=== PATIENT | female | born 1950 | race Caucasian/White ===

== ENCOUNTER 2018-02-15 06:28 | Inpatient (IN) | payer MEDICAID, MEDICARE ==
[~2018-02-15 06:28] MED LIST: MORPHINE SULFATE 15 MG TABLET.SA PO PRN; TRANEXAMIC ACID 1,000 MG in NORMAL SALINE 100 ML IV PRN; ceFAZolin SODIUM 1 GM VIAL IV PRN
[2018-02-15] MEDS: RINGER'S SOLUTION,LACTATED 1,000 ML IV PRN ×2 (07:08→08:20)
--- NOTE | 2018-02-15 07:24 | ANES ---
Anesthesia Pre Procedure Eval Vitals/Labs: Last Vital Signs Temp 36.4 C 02/15/18 06:30 Pulse 93 02/15/18 06:30 Resp 18 02/15/18 06:30 BP 139/93 H 02/15/18 06:30 Pulse Ox 94 02/15/18 06:30 HOME MEDICATIONS acyclovir 400 mg tablet 400 mg PO DAILY 10/27/17 [Last Taken 02/14/18] albuterol sulfate HFA 90 mcg/actuation aerosol inhaler 2 inh IH Q8H PRN 10/27/17 [Last Taken 02/14/18] alprazolam 1 mg tablet 1 mg PO TID 10/27/17 [Last Taken 02/14/18] azithromycin 500 mg tablet 500 mg PO 3XW 10/27/17 [Last Taken 02/15/18] budesonide-formoterol HFA 80 mcg-4.5 mcg/actuation aerosol inhaler 2 inh IH BID 10/27/17 [Last Taken 02/14/18] cyclobenzaprine 10 mg tablet 10 mg PO TID 10/27/17 [Last Taken 02/14/18] diphenhydramine 25 mg capsule 25 mg PO Q8H PRN 10/27/17 [Last Taken Unknown] ipratropium bromide 0.02 % solution for inhalation 1.25 ml IH Q8H PRN 10/27/17 [Last Taken 02/14/18] montelukast 10 mg tablet 10 mg PO DAILY 10/27/17 [Last Taken 02/14/18] multivitamin-ferrous fumarate-folic acid 18 mg-400 mcg tablet 1 tab PO DAILY 10/27/17 [Last Taken 02/14/18] naproxen sodium 220 mg capsule 220 mg PO BID PRN 10/27/17 [Last Taken Unknown] omeprazole 40 mg capsule,delayed release 40 mg PO DAILY 10/27/17 [Last Taken 02/14/18] oxygen-air delivery systems device See Dose Instructions .ROUTE .MEDSUPPLY #1 10/27/17 [Last Taken Unknown] rosuvastatin 10 mg tablet 10 mg PO DAILY 10/27/17 [Last Taken 02/14/18] tramadol 50 mg tablet 50 mg PO QID 10/27/17 [Last Taken 02/14/18] turmeric root extract 500 mg capsule 500 mg PO DAILY 10/27/17 [Last Taken 02/14/18] Allergies/Adverse Reactions: Allergies Allergy/AdvReac Type Severity Reaction Status Date / Time pregabalin [From Lyrica] Allergy Severe Swelling Verified 02/15/18 06:42 of Tongue ibuprofen Allergy Intermediate Other Verified 02/15/18 06:42 ketorolac Allergy Intermediate Hives Verified 02/15/18 06:42 duloxetine Allergy Unknown Hives Verified 02/15/18 06:42 adhesive AdvReac Intermediate Other Verified 02/15/18 06:42 - Planned Procedure Planned Procedure: Left reverse total shoulder Medication List Reviewed:: Yes Allergies Verified: Yes Medical History (Last Reviewed 02/15/18 @ 07:18 by Gualberto De Los Santos CRNA) Basal cell carcinoma squamous cell Asthma Myocardial infarction Pneumonia Anxiety Onset Date: Unknown COPD (chronic obstructive pulmonary disease) Onset Date: Unknown Surgical History (Last Reviewed 02/15/18 @ 07:18 by Gualberto De Los Santos CRNA) H/O arthroscopy of left knee Hx of cholecystectomy Rotator cuff arthropathy of both shoulders H/O Spinal surgery History of open reduction and internal fixation (ORIF) procedure Right ankle Family History (Last Reviewed 02/15/18 @ 07:18 by Gualberto De Los Santos CRNA) Sister Breast cancer Father Prostate cancer Mother CHF (congestive heart failure) Asthma - Family Anesthesia History Family History:: no untoward family reactions to anesthesia, no familial bleeding tendencies, no family history of clotting disorders, no family history of premature - Airway/Neck/Teeth Teeth Condition: None Denture Type: Full- Upper & Lower Neck Exam: non-tender, limited range of motion, stiff neck - previous cervical surgery Mallampatti Score: 3 Thyromental (T-M) distance: > 6 cm Mandibulo Hyoid distance: > 3 cm - Respiratory Respiratory: chest non-tender, wheezing - obvious expiratory wheezing, taking nebulizer now (usually 4X/day) Smoking Status: Former smoker - quit July 16 but smoked "some" since Discussed smoking cessation including day of surgery: Yes - none today Sleep Apnea currently treated: No Sleep Apnea by current assessment: No - Cardiovascular Patient History - Cardiac/Respiratory: Asthma, COPD, Myocardial Infarction, Home O2 Use Tolerates Activity: Fair - slow but can ambulate and move well. Heart Sounds: S1 & S2, Regular - Anesthesia Assessment and Plan Narrative: Discussed current lung status, risks, benefits. Understands pulmonary and cardiac risks. ASA Class: PS, III Anesthesia Type Plan: General LMA, Block - for post op pain relief Planned difficult intubation/equipment available: No
[2018-02-15] MEDS ORDERED: ONDANSETRON HCL/PF 2 MG/ML VIAL IV PRN (10:27)
[2018-02-15] MEDS ORDERED: MAGNESIUM HYDROXIDE 30 ML UDC PO PRN (10:27)
[2018-02-15] MEDS ORDERED: MORPHINE SULFATE 2 MG/ML DISP.SYRIN IV PRN (10:27)
[2018-02-15] MEDS ORDERED: MAG HYDROX/ALUMINUM HYD/SIMETH 30 ML UDC PO PRN (10:27)
[2018-02-15] MEDS ORDERED: ACETAMINOPHEN 500 MG TABLET PO PRN (10:27)
[2018-02-15] MEDS ORDERED: DEXTROSE 5%-LACTATED RINGERS 1,000 ML IV PRN (10:27)
[2018-02-15] MEDS ORDERED: ZOLPIDEM TARTRATE 5 MG TABLET PO PRN (10:27)
[2018-02-15] MEDS ORDERED: diphenhydrAMINE HCL 25 MG CAPSULE PO PRN (10:30)
[2018-02-15] MEDS ORDERED: AZITHROMYCIN 250 MG TABLET PO SCH (10:30)
--- NOTE | 2018-02-15 10:38 | OR ---
Operative Report - Dictated Report Narrative: Date: 02/15/2018 Physician: Brendon Zafar M.D. Public Relations Writer: Guillermo Pérez PA-C (provided essential set of skilled and educated hands that assisted with transfer, positioning, draping, prepping, retraction, exposure, manipulation, retraction, irrigation, suturing, and placement of dressings and orthotics although which cannot be performed by the available surgical crew) Preoperative diagnosis: Left Shoulder Rotator Cuff Deficient Arthritis Postoperative diagnosis: Left Shoulde Rotator Cuff Deficient Arthritis Procedure: Reverse left total shoulder arthroplasty, removal of deep implants Anesthesia: General plus regional Complications: None Estimated blood loss: 150 Milliliters Specimens: Bone for disposal Retained implants: Depuy Global Unite Porocoat Size 12 standard stem, Delta Xtend Cementless Modular eccentric Epiphysis Size 1, Delta Xtend size 38 + 6 humeral PE cup, Delta Xtend size 38 Glenosphere, Delta Xtend Cementless SANZ coated centered Metaglene, 4.5 mm Delta Xtend locking screws 30,36mm, 4.5 mm Delta Xtend size 18mmx2 screws Drains: None Indications: Mrs. Romano Is a 67 year-old female who has been followed in my clinic with complaints of shoulder pain consistent with rotator cuff deficient arthrosis. Physical exam and diagnostic imaging were consistent with his complaints and concern for left shoulder arthrosis. Conservative measures have failed including, but not limited to, passage of time, activity modification, medic ations, physical therapy/home exercise program, or injections. The risks, benefits, and alternatives were discussed in clinic. The risks being , bleeding, infection, blood clots, nerve, tendon, ligament, blood vessel injury, instability, malposition of implants, wear, persistent pain, arthrosis, stiffness, need for prolonged therapy, need for additional procedures, and persistent symptoms. Consent was obtained in the clinic. Procedure: After marking the correct extremity on the floor, a timeout was performed in the operating room. IV antibiotics consisting of Ancef were administered prior to the procedure. A general followed by regional anesthetic was induced by the nurse mental retardation aide per my request. This was in the supine position, then the patient was transitioned to a beachchair position with all bony prominences well-padded, head in neutral, the nonoperative arm well supported, and the legs padded with SCDs in place. The operative shoulder was then prepped and draped in a standard sterile fashion. A standard deltopectoral incision was then made. Blunt dissection was carried through the subcutaneous fat in order to encounter the cephalic vein. Cephalic vein was then mobilized in order to pass through the deltopectoral interval. The superior aspect of the pectoralis was released off the humerus. The underlying fascia was elevated exposing the subscapularis tendon. The subscapularis was then tagged and reflected off of the anterior humerus splitting this into the joint. The long head of the biceps was tenotomized and the shoulder was dislocated. A soft tissue release around the inferior and posterior aspect of the humeral head was performed in order to improve the visualization of the proximal humerus. There were retained rotator cuff anchors both metallic and plastic which were removed as well as the suture. An entry drill was then placed into the humeral head passing down the humeral shaft just onto the articular surface medial to the greater tuberosity. A series of reamers up to a size 12 were utilized. Next a standard neck cut was made utilizing the outrigger and 10 of retroversion. The osteophytes and excessive bone around the neck and head were then rongeured and the cap was placed over the cut proximal humerus. There was notable significant arthrosis of the humeral head. Next attention was turned to the glenoid. The remaining labrum and soft tissues were mobilized off the glenoid and surrounding neck. This allowed for adequate exposure and visualization of the arthritic glenoid. Retractors were then placed in order to expose the glenoid. Utilizing the guide handle a guide wire was placed into the glenoid. This was placed in a slightly inferior posterior position ensuring that this was directed in an inferior angle compared to the face of the glenoid. The circular followed by eccentric reamer was utilized in order to expose the glenoid face down to a subchondral surface which was smooth. Next the central peg was drilled ensuring that there was bone circumferentially. The metaglene was then impacted in the place seating completely. The superior and inferior screw holes were drilled and measured and securely placed. The anterior and posterior nonlocking screws were then drilled and placed and then the superior and inferior locking screws were locked in to place. A size 38 standard Glenosphere was then placed onto the metaglene and the screw was tightened while sequentially impacting and tightening ensuring that the Glenopher was securely seated. Attention was then returned to the humerus. While retracting the surrounding soft tissues, the proximal reaming broach was impacted in the previously cut 10 retroversion manner. A standard reamer was utilized in order to prepare the proximal humerus. This was done utilizing the offset eccentric guide. The remaining bone off the center aspect of the proximal humerus was rongeured and the trial stem was then impacted in 10 of retroversion. A series of spacers were utilized finding that a 6mm spacer gave appropriate stability. Longitudinal traction resulted in minimal translation. The conjoined tendon was under tension. She was able to reach 90 of abduction and external rotation. Forward flexion was greater than 140 and she was able to adduct fully without impinging onto the scapular neck. Once was felt that we had the appropriate sized implants the shoulder was dislocated and the proximal humerus was thoroughly irrigated. The final implants were assembled on the back table and impacted into place seating completely. We re-trialed the spacers confirming that we had the appropriate sized spacer and the final polyethylene was then impacted into place. Shoulder was reduced and again was noted to be stable through multiple positions. The wounds were then thoroughly irrigated. The subscapularis was repaired with #2 Ethibond. The deltopectoral interval was closed with running 0 Vicryl. Subcutaneous tissues closed with 0 Vicryl. The skin was closed with running 3-0 Vicryl and helder. Xeroform, 4 x 4s, and a Tegaderm was applied. The patient was then awoken and transferred to postanesthesia care in stable condition. All sponge, needle, and instrument counts were correct prior close the wounds.
--- NOTE | 2018-02-15 10:50 | ANES ---
Anesthesia Procedure Note Procedure Note: My interscalene block ANESTHESIA PROCEDURE NOTE Date of Procedure: 02/15/2018 Time of procedure: 8:05 AM. Performed by: UMESH Holloway CRNA, MSN Compensation Vice President: Shayy Gordillo RN. Preprocedure diagnosis:Left reverse total shoulder arthroplasty pain relief. Post procedure diagnosis: Same. Procedure: Left Interscalene nerve block. Indications: Post left total shoulder arthroplasty pain relief. Findings: See below. Details of the procedure: The patient was brought to OR 4 and placed in semi- Fowlers position. The patient was prepped with chlorhexidine and using ultrasound guidance the left interscalene segment of the brachial plexus was identified and lidocaine 1% was infiltrated to the skin of the intended injection site. Under ultrasound guidance the interscalene nerve bundles were approached with visualization of a 2inch stimulator needle visualized unde ultrasound until a shoulder/arm response was identified on nerve stimulator. Once the stimulator response was effective at less than 0.5 mV and greater than 0.3 mV the bracheal plexus nerves at this level were surrounded with 30 mL bupivacaine 0.25% with 1-200,000 epinephrine. Please see radiology/ultrasound report for details and retained images of the procedure. EBL: 0 Fluids: N/A. Specimen: N/A. Post procedure condition: The patient tolerated the procedure well. No complications were noted. Thank you for this consultation. Gualberto De Los Santos CRNA, UMESH, MSN
--- NOTE | 2018-02-15 10:50 | ANES ---
Post Anesthesia Discharge - Transfer of Care Transfer of Care handoff given to nurse: Yes - Discharge from PACU Discharge from PACU when meets criteria: Yes - Awake and comfortable
[2018-02-15] MEDS: ceFAZolin SODIUM 1 GM in DEXTROSE 5 % IN WATER 100 ML IV SCH ×4 (11:51→20:32)
[2018-02-15] MEDS: oxyCODONE HCL/ACETAMINOPHEN 1 TAB TABLET PO PRN ×2 (12:07→17:22)
[2018-02-15] MEDS: ALPRAZolam 1 MG TABLET PO SCH ×2 (12:12→20:41)
--- NOTE | 2018-02-15 13:45 | ANES ---
Post Anesthesia Assessment - Vital Signs Vitals: Last Vital Signs Temp 36.5 C 02/15/18 11:15 Pulse 73 02/15/18 12:28 Resp 18 02/15/18 12:28 BP 128/82 02/15/18 12:28 Pulse Ox 100 02/15/18 12:28 Airway Patency: Normal - Mental Status Level Of Consciousness: Awake, Alert - Pain Level Pain Score: 0 - N/V Assessment Nausea/Vomiting Presence: None Dehydration:: No
[2018-02-15] MEDS: IPRATROPIUM BROMIDE 0.5 MG/2.5 ML VIAL.NEB IH PRN ×2 (16:28→22:36)
[2018-02-15] MEDS: ALBUTEROL SULFATE 2.5 MG/0.5 ML VIAL.NEB IH PRN ×2 (16:28→22:35)
[2018-02-15] MEDS ORDERED: LORATADINE 10 MG TABLET PO PRN (20:05)
[2018-02-15] MEDS: diphenhydrAMINE HCL 50 MG/ML VIAL IV PRN (20:29)
[2018-02-15] MEDS: FLUTICASONE/SALMETEROL 14 PUFF DISK.W.DEV IH SCH (20:36)
[2018-02-15] MEDS: ASPIRIN 325 MG TABLET.DR PO SCH (20:38)
[2018-02-15] MEDS ORDERED: SENNOSIDES/DOCUSATE SODIUM 1 TAB TABLET PO SCH (21:00)
[2018-02-16] MEDS: ceFAZolin SODIUM 1 GM in DEXTROSE 5 % IN WATER 100 ML IV SCH ×2 (00:32)
[2018-02-16] MEDS: diphenhydrAMINE HCL 50 MG/ML VIAL IV PRN (00:44)
[2018-02-16] MEDS: oxyCODONE HCL/ACETAMINOPHEN 1 TAB TABLET PO PRN ×3 (00:45→12:21)
[2018-02-16 05:31] LABS: Hemoglobin 10.3 gm/dL (12.5-16.0); Mean Cell Volume 96.5 fl (78-100); Mean Corpuscular Hemoglobin 30.1 pg (27-31); Mean Corpuscular Hgb Conc 31.2 g/dl (32-36); Mean Platelet Volume 10.9 fl (8-12.5); Platelet Count 168 K/mm3 (150-450); Red Blood Count 3.42 M/mm3 (4.2-5.4); Red Cell Distribution Width 13.3 % (11.5-14.0); White Blood Count 7.4 K/mm3 (4.0-10.5)
[2018-02-16 05:38] LABS: Anion Gap 9.4 mmol/L (6.8-13.8); BUN/Creatinine Ratio 13.9 (9.0-21.6); Calcium * 8.9 mg/dL (7.9-10.9); Carbon Dioxide 30.7 mmol/L (24-32.6); Estimated Creat Clear 39.3; Potassium 4.1 mmol/L (3.4-4.6)
[2018-02-16] MEDS ORDERED: PANTOPRAZOLE SODIUM 40 MG TABLET.EC PO SCH (07:00)
[2018-02-16] MEDS ORDERED: MORPHINE SULFATE 15 MG TABLET.SA PO SCH (08:15)
[2018-02-16] MEDS: ASPIRIN 325 MG TABLET.DR PO SCH (08:39)
[2018-02-16] MEDS: ALPRAZolam 1 MG TABLET PO SCH ×2 (08:39→12:20)
[2018-02-16] MEDS: FLUTICASONE/SALMETEROL 14 PUFF DISK.W.DEV IH SCH (08:39)
[2018-02-16] MEDS: IPRATROPIUM BROMIDE 0.5 MG/2.5 ML VIAL.NEB IH PRN (08:57)
[2018-02-16] MEDS: ALBUTEROL SULFATE 2.5 MG/0.5 ML VIAL.NEB IH PRN (08:57)
[2018-02-16] MEDS ORDERED: MONTELUKAST SODIUM 10 MG TABLET PO SCH (09:00)
[2018-02-16] MEDS ORDERED: Turmeric Root Extract [Turmeric] 500 MG PO SCH (09:00)
[2018-02-16] MEDS ORDERED: ROSUVASTATIN CALCIUM 10 MG TABLET PO SCH (09:00)
[2018-02-16] MEDS ORDERED: MULTIVITAMIN/IRON/FOLIC ACID 1 TAB TABLET PO SCH (09:00)
[2018-02-16] MEDS ORDERED: ACYCLOVIR 200 MG CAPSULE PO SCH (09:00)
--- NOTE | 2018-02-16 12:45 | DS ---
(1) Degenerative joint disease, shoulder, left Problem: Chronic (2) Rotator cuff arthropathy of left shoulder Problem: Chronic (3) Status post reverse total shoulder replacement Problem: Acute (4) COPD (chronic obstructive pulmonary disease) Problem: Chronic Description of Stay: Mrs. Romano was admitted to the floor after undergoing left reverse total shoulder arthroplasty. Tolerated this well. Was admitted to the floor postoperatively for 24 hours of IV antibiotics, pain control, medical comanagement, and occupational and physical therapy. OT and PT were consulted to assist with activities of daily living and ambulation. Was made weightbearing as tolerated with no weight on left upper extremity. SCD and JOANNA hose were utilized for DVT prophylaxis. Vital signs remained stable to the hospital course. Serial labs were obtained which showed a final hemoglobin of 10.3 grams. BMP was reviewed and was stable. Physical examination throughout the hospital course showed an extremity that had sensation that was intact to light touch, palpable pulses, a benign wound, motor intact to the toes, ankle, and knee. Once an oral pain regimen was tolerated and physical therapy goals were met, it was felt that they were stable for discharge to home. Instructions: Continue with weightbearing as tolerated and range of motion as tolerated no weight on left upper extremity. Keep incision clean and dry. If you note any drainage or for comfort you can cover with dry gauze and tape. Change every 2-3 days as needed. Continue with physical therapy as outpatient for passive and ac tive assist left shoulder range of motion with no external rotation, active elbow and wrist range of motion as tolerated. Resume home diet. Report any fever over 101.5 Fahrenheit, uncontrolled pain, increased drainage, foul odor of drainage, new or increased calf pain or shortness of breath, or any other significant complaints. No driving until instructed otherwise. Follow up in approximately 10-14 days. Procedures Performed: see notes below List Procedures: Reverse left total shoulder arthroplasty Results and Findings: Lab Pending Results 02/16/18 05:20: WBC 7.4, RBC 3.42 L, Hgb 10.3 L, Hct 33.0 L, MCV 96.5, MCH 30.1, MCHC 31.2 L, RDW 13.3, Plt Count 168, MPV 10.9 02/16/18 05:20: Sodium 139, Plasma Sodium 139, Potassium 4.1, Chloride 103, Carbon Dioxide 30.7, Anion Gap 9.4, BUN 16, Creatinine 1.15, Est GFR (Non-Af Amer) 50 L, BUN/Creatinine Ratio 13.9, Random Glucose 95, Calcium 8.9 Discharge Location: Home Disposition: Home self-care Condition: Good Discharge Activity: Other - in immobilizer nonweightbearing left upper extremity Discharge Diet: General/regular food Referrals: Frankie Blood MD [Primary Care Provider] - Additional Patient Instructions (free text): Follow up Orthopedic appt. at Dr Enciso on ThursdayMarch 02 at 10:45am. [facility] in [place] on February 18 at 10:45am, please fax discharge therapy order to [phone]. Prescriptions (Any new or edited meds): Morphine Sulfate [Ms Contin] 15 mg PO Q12H #20 tablet.sa oxyCODONE HCL/ACETAMINOPHEN [Percocet 5 MG/325 MG] 2 tab PO Q4H PRN #60 tablet PRN Reason: Moderate Pain (Pain Scale 4-6) Sennosides/Docusate Sodium [Senokot-S] 2 tab PO HS #30 tablet Complete Home Medications List: Complete Home Medication List: acyclovir 400 mg tablet 400 mg PO DAILY 10/27/17 albuterol sulfate HFA 90 mcg/actuation aerosol inhaler 2 inh IH Q8H PRN 10/27/17 alprazolam 1 mg tablet 1 mg PO TID 10/27/17 azithromycin 500 mg tablet 500 mg PO 3XW 10/27/17 budesonide-formoterol HFA 80 mcg-4.5 mcg/actuation aerosol inhaler 2 inh IH BID 10/27/17 cyclobenzaprine 10 mg tablet 10 mg PO TID 10/27/17 diphenhydramine 25 mg capsule 25 mg PO Q8H PRN 10/27/17 ipratropium bromide 0.02 % solution for inhalation 1.25 ml IH Q8H PRN 10/27/17 montelukast 10 mg tablet 10 mg PO DAILY 10/27/17 multivitamin-ferrous fumarate-folic acid 18 mg-400 mcg tablet 1 tab PO DAILY 10/27/17 naproxen sodium 220 mg capsule 220 mg PO BID PRN 10/27/17 omeprazole 40 mg capsule,delayed release 40 mg PO DAILY 10/27/17 oxygen-air delivery systems device See Dose Instructions .ROUTE .MEDSUPPLY #1 10/27/17 rosuvastatin 10 mg tablet 10 mg PO DAILY 10/27/17 turmeric root extract 500 mg capsule 500 mg PO DAILY 10/27/17 Aspirin [Aspirin Enteric Coated] 325 mg PO BID tablet. 02/16/18 Loratadine [Claritin] 10 mg PO BID PRN tablet 02/16/18 Morphine Sulfate [Ms Contin] 15 mg PO Q12H #20 tablet.sa 02/16/18 Sennosides/Docusate Sodium [Senokot-S] 2 tab PO HS #30 tablet 02/16/18 oxyCODONE HCL/ACETAMINOPHEN [Percocet 5 MG/325 MG] 2 tab PO Q4H PRN #60 tablet 02/16/18 Amb Orders for Discharge: PT Evaluation and Treatment* Facility: [facility], Location: Rehabilitation Services
[2018-02-16 14:35] VITALS: BP 156/84
== END 2018-02-16 14:50 | disposition home or self-care (01) | DRG 483 ==
LOC: MS 06:28
PROVIDERS: ADMIT Orthopaedic Surgery; ATTEND Orthopaedic Surgery
CPT/HCPCS: 36415; 73030; 80048; 85027; 94640; 94664; 97110; 97116; 97140; 97161; 97165; 97535